=== PATIENT | male | born 1945 | race Caucasian/White ===

== ENCOUNTER → 2018-03-13 | Outpatient (CLI) | payer MEDICARE, OTHER ==
[~2018-03-13] MED LIST: ACE325 PO; BACDS PO; GEMF600T91 PO; GLUC500T13 PO; IBUP-136 PO; IOPAMIDOL 76% 75 ML INFUS BTL 75 ML ONE; MULT-865 PO; OMEG-11 PO
--- NOTE | 2018-03-13 10:29 | RADIOLOGY IMAGING REPORT ---
[place] [facility] [place] NAME: Jorge A Carlton : 1945 MR: [id number] V: [id number] EXAM DATE: ORDERING PHYSICIAN: ALEXIS BERG TECHNOLOGIST: [place] [facility] [place] A Carl[place] : 1945 Visit/Account:[id number] Date of Sevice: 03/13/2018 ABDOMEN/PELVIS W/O CONTRAST EXAMINATION: CT abdomen /pelvis without IV contrast CT pelvis abdomen/ with IV contrast 75 mL of Isovue-[id number] HISTORY: Abdominal pain TECHNIQUE: CT scan of the abdomen and pelvis performed from the lung base through pubic symphysis wit hout contrast followed by scan from lung base through pubic symphysis after administration of IV cont rast. One of the following dose optimization techniques was utilized in the performance of this exam: Autom ated exposure control; adjustment of the mA and/or kV according to the patient's size; or use of an i terative reconstruction technique. Specific details can be referenced in the facility's radiology C T exam operational policy. COMPARISON STUDIES: 09/17/2010 FINDINGS: Liver/Biliary: No focal liver lesions. Gallbladder demonstrates no stones. No evidence of cholecyst itis Pancreas: No pancreatic lesion or inflammation Spleen: Negative Adrenal glands: Negative Kidneys/Retroperitoneum: Normal nephrograms bilaterally. No mass lesion. No abnormal enhancement. Collecting system normal in appearance with no obstructive change. Pelvic structures: Prostate is not enlarged. Bowel/peritoneum/mesenteries: Diverticuli without evidence of diverticulitis. Appendix is normal. T here is a prominent third portion the duodenum diverticulum measuring 3.0 cm in diameter (image 50 se samson 6). 50% of this diverticulum is filled with food debris. It is slightly larger than the previo us examination Vessels: Negative Musculoskeletal/body wall: Umbilicus herniation of peritoneal fat through a 1.5 cm defect. No bowel associated with this herniating peritoneal fat. No acute bony pathology. Stable appearing disc degenerative changes of an advanced degree at the L5- S1 level with respect disc space spurring sclerosis and marginal osteophytes. Stable appearing retro listhesis of L fourth respect to L3. Increasing disc degenerative changes from the L1-2 through the L3-L4 levels. Unchanged L5-S1 disc DJD changes.. Lymph node assessment: Negative Lower chest: Stable appearing small parenchymal nodule in the right middle lobe measuring 4 mm. No c hange since 2010. Stable appearing small three mm nodule in the posterior right lung (image four ser ies 2) IMPRESSION: 1. Diverticulosis without evidence of diverticulitis. 2. Third portion the duodenum 3 cm diverticulum. This could conceivably be the patient's source of pain. Recommend clinical correlation. 3. Umbilicus herniation of peritoneal fat. 4. Stable appearing lung nodules Report Dictated By: Truong Sanchez MD at 03/13/2018 9:37 AM Report E-Signed By: Truong Sanchez MD at 03/13/2018 10:26 AM WSN:[id number]
== END ==
LOC: CT 02:29
PROVIDERS: ATTEND Physician Assistant Medical
DX: K57.30 Diverticulosis of large intestine without perforation or abscess without bleeding (principal); K42.9 Umbilical hernia without obstruction or gangrene; R91.8 Other nonspecific abnormal finding of lung field
CPT/HCPCS: 74178; Q9967

== ENCOUNTER 2018-08-29 05:36 | Emergency (ER) | payer MEDICARE, OTHER ==
[~2018-08-29 05:36] MED LIST changes: -IOPAMIDOL 76% 75 ML INFUS BTL 75 ML ONE
[2018-08-29 05:40] VITALS: BP 185/94
--- NOTE | 2018-08-29 05:43 | ER Report ---
History and Physical Time Seen By MD: 05:41 HPI/ROS CHIEF COMPLAINT: Low back pain HISTORY OF PRESENT ILLNESS: 72-year-old male presents ambulatory to the ER complaining of lower 6/10 back pain without radiation the lower extremities for several days. He recalls no injury or aggravating factors. 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 He denies fever or chills. He denies body aches. He denies dysuria. Patient notes no exacerbating or alleviating factors. REVIEW OF SYSTEMS: Respiratory: No cough, no dyspnea. Cardiovascular: No chest pain, no palpitations. Gastrointestinal: No vomiting, no abdominal pain. Musculoskeletal: As above Allergies: Coded Allergies: No Known Drug Allergies (Verified , 08/29/18) Home Meds Active Scripts Methocarbamol (ROBAXIN-750) 750 Mg Tablet, 1 TAB PO TID PRN for muscle spasm relief, #20 Prov:DARREN HUTCHISON DO 08/29/18 Tramadol Hcl (TRAMADOL HCL) 50 Mg Tablet, 1 TAB PO Q6H PRN for pain, #20 MG TAKE ONE TO TWO TABLETS BY MOUTH EVERY FOUR TO SIX HOURS NEEDED Prov:DARREN HUTCHISON DO 08/29/18 Reported Medications Ibuprofen (IBUPROFEN) 200 Mg Capsule, 1 CAP PO Q6H, CAPSULE 03/17/17 Multivitamin (DAILY MULTIPLE VITAMIN) 1 Each Tablet, 1 TAB PO DAILY 03/17/17 Acetaminophen (Tylenol) 325 Mg Tab, 650 MG PO Q6H PRN, 0 Refills 09/18/10 Gemfibrozil (Gemfibrozil) 600 Mg Tablet, 600 MG PO, 0 Refills 09/14/10 Glucosamine Sulfate (Glucosamine) 500 Mg Tablet, 500 MG PO, 0 Refills 09/14/10 Docosahexanoic Acid/Epa (Fish Oil 1,000 Mg Capsule) 1 Cap Capsule, 1 CAP PO, 0 Refills 09/14/10 Reviewed Nurses Notes: Yes Old Medical Records Reviewed: Yes Hx Smoking: No Smoking Status: Never Smoker Hx Substance Use Disorder: No Hx Alcohol Use: Yes Constitutional Vital Sign - Last 24 Hours 08/29/18 05:40 Temp 97.8 Pulse 68 Resp 14 B/P (MAP) 185/94 Pulse Ox 94 O2 Delivery Room Air Physical Exam General Appearance: The patient is alert, has no immediate need for airway protection and no current signs of toxicity. Vital signs stable, afebrile, pulse ox normal HEENT:: Pupils equal and round no injection. Oropharynx without redness or exudate, mucous. Membranes are moist Respiratory: Chest is non tender, lungs are clear to auscultation. Cardiac: regular rate and rhythm Gastrointestinal: Abdomen is soft and non tender, no masses, bowel sounds normal. There is no CVA tenderness Musculoskeletal: Neck: Neck is supple and non tender. Back:, There is no tenderness. Patient of the midline of the spinous processes, there is no tenderness on palpation of the hair spinous muscles. There is no tenderness in palpation of the site joints. He has a negative straight-leg raise bilaterally, neurologic exam in the lower externally is nonfocal. Extremities have full range of motion and are non tender. Skin: No rashes or lesions. DIFFERENTIAL DIAGNOSIS: After history and physical exam differential diagnosis was considered for back pain including but not limited to muscular pain, herniated disc, spine fracture, intra-abdominal causes and urinary tract infection. Medical Decision Making Data Points Laboratory Hematology Test 08/29/18 05:50 Urine Color Yellow Urine Clarity Clear Urine pH 5.0 pH (4.8-9.5) Urine Specific [place] 1.020 Urine Protein Negative mg/dL (NEGATIVE) Urine Glucose (UA) Negative mg/dL (NEGATIVE) Urine Ketones Negative mg/dL (NEGATIVE) Urine Blood Negative (NEGATIVE) Urine Nitrite Negative (NEGATIVE) Urine Bilirubin Negative (NEGATIVE) Urine Urobilinogen Negative mg/dL (0.2-1.9) Urine Leukocyte Esterase Negative (NEGATIVE) Urine RBC None /HPF (0-2/HPF) Urine WBC 2 /HPF (0-5/HPF) Urine Squamous Epithelial Cells None /LPF (</=FEW) Urine Transitional Epithelial Cells Moderate /LPF (NONE-FEW) Urine Bacteria Negative /HPF (NONE-FEW) Urine Mucus Few /HPF (NONE-FEW) Chemistry Test 08/29/18 05:50 Urine Color Yellow Urine Clarity Clear Urine pH 5.0 pH (4.8-9.5) Urine Specific Walton 1.020 Urine Protein Negative mg/dL (NEGATIVE) Urine Glucose (UA) Negative mg/dL (NEGATIVE) Urine Ketones Negative mg/dL (NEGATIVE) Urine Blood Negative (NEGATIVE) Urine Nitrite Negative (NEGATIVE) Urine Bilirubin Negative (NEGATIVE) Urine Urobilinogen Negative mg/dL (0.2-1.9) Urine Leukocyte Esterase Negative (NEGATIVE) Urine RBC None /HPF (0-2/HPF) Urine WBC 2 /HPF (0-5/HPF) Urine Squamous Epithelial Cells None /LPF (</=FEW) Urine Transitional Epithelial Cells Moderate /LPF (NONE-FEW) Urine Bacteria Negative /HPF (NONE-FEW) Urine Mucus Few /HPF (NONE-FEW) Urinalysis Test 08/29/18 05:50 Urine Color Yellow Urine Clarity Clear Urine pH 5.0 pH (4.8-9.5) Urine Specific Walton 1.020 Urine Protein Negative mg/dL (NEGATIVE) Urine Glucose (UA) Negative mg/dL (NEGATIVE) Urine Ketones Negative mg/dL (NEGATIVE) Urine Blood Negative (NEGATIVE) Urine Nitrite Negative (NEGATIVE) Urine Bilirubin Negative (NEGATIVE) Urine Urobilinogen Negative mg/dL (0.2-1.9) Urine Leukocyte Esterase Negative (NEGATIVE) Urine RBC None /HPF (0-2/HPF) Urine WBC 2 /HPF (0-5/HPF) Urine Squamous Epithelial Cells None /LPF (</=FEW) Urine Transitional Epithelial Cells Moderate /LPF (NONE-FEW) Urine Bacteria Negative /HPF (NONE-FEW) Urine Mucus Few /HPF (NONE-FEW) EKG/Imaging Imaging X-ray: Lumbar spine 3 views was obtained. I viewed the images myself on the PACS system. My interpretation of the images is: There are some degenerative changes and disc space narrowing with bony spur formation. There does not appear to be any compression fractures.. The radiologist interpretation had no clinically significant variation from this interpretation. ED Course/Re-evaluation ED Course Patient was admitted to an examination room. H&P was done. The differential diagnoses was considered. On clinical examination. Patient has acute low back pain. He is no radiation to his lower extremities. He recalls no specific traumatic injury, but he does heavy work. He has a snow [employer] business. She reports no history of degenerative disc disease. A urinalysis performed which is unremarkable. Diagnostic x-rays of the lumbar spine revealed disc space narrowing and advanced degenerative changes of the lumbar spine. She has no findings on clinical examination. He'll be treated conservatively with ibuprofen, Robaxin and tramadol advised to follow-up with Dr. Christo Sahu if his back pain persists for further evaluation. He may need an MRI or physical therapy. Decision to Disposition Date: Aug 29, 2018 Decision to Disposition Time: 05:57 Depart Departure Latest Vital Signs Vital Signs Date Time Temp Pulse Resp B/P (MAP) Pulse Ox O2 Delivery O2 Flow Rate FiO2 08/29/18 05:40 97.8 68 14 185/94 94 Room Air Impression: Primary Impression: Low back pain Additional Impression: Lumbar degenerative disc disease Condition: Improved Disposition: HOME OR SELF-CARE Referrals: [facility]MA PAK MD (PCP) CHRISTO SAHU MD New Scripts Methocarbamol (ROBAXIN-750) 750 Mg Tablet 1 TAB PO TID PRN for muscle spasm relief, #20 Prov: DARREN HUTCHISON DO 08/29/18 Tramadol Hcl (TRAMADOL HCL) 50 Mg Tablet 1 TAB PO Q6H PRN for pain, #20 MG TAKE ONE TO TWO TABLETS BY MOUTH EVERY FOUR TO SIX HOURS NEEDED Prov: DARREN HUTCHISON DO 08/29/18 Patient Instructions: Acute Low Back Pain (ED) Additional Instructions: Take ibuprofen 200 mg 2 tablets 3 times daily with food Apply heating pad to your lower back Take the muscle relaxant Robaxin/methocarbamol to help the muscles relax Use tramadol for severe pain relief as needed Follow-up with your primary care or Dr. Harmeet Sahu, spine surgeon if unimproved in 4-5 days Problem Qualifiers Primary Impression: Low back pain Chronicity: acute Back pain laterality: midline Sciatica presence: without sciatica Qualified Codes: M54.5 - Low back pain DARREN HUTCHISON DO Aug 29, 2018 05:43
[2018-08-29] MEDS ORDERED: METH-543 PO (06:30)
[2018-08-29] MEDS ORDERED: TRAM-420 PO (06:30)
--- NOTE | 2018-08-29 06:37 | RADIOLOGY IMAGING REPORT ---
FACILITY: [facility] PATIENT NAME: Jorge A Carlton : 1945 MR: [id number] V: [id number] EXAM DATE: ORDERING PHYSICIAN: DARREN HUTCHISON TECHNOLOGIST: Location: [facility] Patient: Jorge A Carlton : 1945 Visit/Account:[id number] Date of Sevice: 08/29/2018 LUMBAR SPINE: Indication: Low back pain. Technique: Frontal and lateral views were obtained. Comparison: None available. Findings: There is no evidence of fracture, subluxation, or compression deformity. There is mild scol iosis with convexity to the left. There is multilevel moderate degenerative disc space narrowing and marginal osteophyte formation. There is uniform mineralization. No destructive skeletal lesions are i dentified. The paraspinal soft tissues appear unremarkable. IMPRESSION: Multilevel degenerative disc space narrowing and osteophyte formation. No fracture or acu te deformity is clearly identified. Report Dictated By: Yadiel Hager MD at 08/29/2018 6:29 AM Report E-Signed By: Yadiel Hager MD at 08/29/2018 6:32 AM WSN:[id number]
== END 2018-08-29 06:37 | disposition home or self-care (01) ==
LOC: ER 05:54
DX: M51.36 Other intervertebral disc degeneration, lumbar region (principal); M54.5 Low back pain
CPT/HCPCS: 72100; 81001; 99283